=== PATIENT | male | born 1975 | race Caucasian/White ===

== ENCOUNTER 2017-05-18 01:31 | Emergency (ER) | payer SELFPAY ==
[~2017-05-18] VITALS: Ht 167.6 cm; Wt 86.2 kg
[2017-05-18 01:40] VITALS: BP_SYST 148
--- NOTE | 2017-05-18 01:40 | NUR ---
Patient to ER bed CH1 for evaluation.
--- NOTE | 2017-05-18 01:42 | NUR ---
Patient brought in by law enforcement in handcuffs for medical clearance prior to booking. Patient has hx of DM. No other symptoms or complaints.
[2017-05-18] MEDS ORDERED: GLUXR500 PO (01:54)
--- NOTE | 2017-05-18 01:55 | NUR ---
JODI Banks at bedside for medical evaluation.
[2017-05-18 02:03] VITALS: BP_SYST 138
--- NOTE | 2017-05-18 02:03 | NUR ---
Patient given written and verbal discharge instructions and verbalizes understanding. ER MD discussed with patient the results and treatment provided. Patient in stable condition. ID arm band removed. No Rx given. Patient educated on pain management and to follow up with PMD. Pain Scale 0/10. Opportunity for questions provided and answered. Medication side effect fact sheet provided.
== END 2017-05-18 02:03 ==
LOC: SED 01:31
DX: Z02.89 Encounter for other administrative examinations (principal); E11.9 Type 2 diabetes mellitus without complications; I10 Essential (primary) hypertension; E78.00 Pure hypercholesterolemia, unspecified; Z90.49 Acquired absence of other specified parts of digestive tract
CPT/HCPCS: 99283